=== PATIENT | male | born 1965 | race Caucasian/White ===

== ENCOUNTER 2023-02-08 08:32 | Emergency (ER) | payer OTHER | END 2023-02-08 09:53 | disposition home or self-care (01) | LOC: DL.ED 08:32 | DX: M67.911 Unspecified disorder of synovium and tendon, right shoulder (principal); I10 Essential (primary) hypertension; K21.9 Gastro-esophageal reflux disease without esophagitis; Z79.899 Other long term (current) drug therapy | CPT/HCPCS: 73030-RT; 99283 ==